=== PATIENT | male | born 1990 | race Caucasian/White ===

== ENCOUNTER 2020-05-31 19:37 | Emergency (ER) | payer BC, SELFPAY ==
[2020-05-31 19:39] VITALS: Ht 170.2 cm
[2020-05-31 21:39] VITALS: BP 129/71
== END 2020-05-31 21:39 | disposition home or self-care (01) ==
LOC: ED 19:37
DX: U07.1 COVID-19 (principal); B34.9 Viral infection, unspecified
CPT/HCPCS: U0003